=== PATIENT | male | born 1945 | race Caucasian/White ===

== ENCOUNTER 2016-11-07 05:16 | Inpatient (IN) | payer MEDICARE, BC, MEDICAID, OTHER ==
[~2016-11-07] VITALS: Ht 172.7 cm; Wt 106.4 kg
--- NOTE | ~2016-11-07 | CO ---
ADMIT: 11/07/2016 RM/LOC: 303 [facility] MR#: [id number] [address] [address] WALE NOGUERA [address] [place] [address] Consultation SEX: M AGE: 71 : 1945 DATE OF CONSULTATION: 11/07/2016 ATTENDING PHYSICIAN: Jon Piedra MD CONSULTING PHYSICIAN: Earl Mendoza MD ADDENDUM: CHIEF COMPLAINT: GI bleed and anemia. HISTORY OF PRESENT ILLNESS: This is a pleasant patient of Dr. Vasquez. He has a history of multiple myeloma. He has had some bright red blood per rectum as well as dark stools. Hemoglobin has drifted down. He is not complaining of any abdominal pain, nausea, or vomiting at this time. On exam, his abdomen is soft, it is nontender and nondistended. ASSESSMENT: Anemia, probable gastrointestinal bleed. PLAN: I recommended proceeding with both upper and lower endoscopies so we can get things done with one sedation. I have gone through risks and benefits of this procedure with the patient, he understands and agrees to proceed. Earl Mendoza MD/ sehrlyn JOB #: [id number] CC: Jon Piedra MD, Attending Physician Jon Piedra MD, Family Physician
--- NOTE | ~2016-11-07 | OR ---
ADMIT: 11/07/2016 RM/LOC: 303 [facility] MR#: [id number] [address] [address] WALE NOGUERA [address] [place] [address] Operative/Delivery Room Report SEX: M AGE: 71 : 1945 SURGERY DATE: 11/08/2016 SURGEON: Earl Mendoza MD PREOPERATIVE DIAGNOSES: Gastrointestinal bleed and anemia. POSTOPERATIVE DIAGNOSES: 1. Normal upper endoscopy. 2. Extensive sigmoid diverticula with evidence of some old blood within the descending colon. PROCEDURE PERFORMED: 1. EGD with biopsies. 2. Colonoscopy. ANESTHESIA: Sedation. ESTIMATED BLOOD LOSS: None. DESCRIPTION OF PROCEDURE: After appropriate informed consent was obtained, the patient was brought to the endoscopy suite. IV sedation was provided. A well-lubricated endoscope was introduced and passed down the esophagus. The esophageal mucosa appeared normal. Really no evidence of hiatal hernia. No evidence of esophagitis. The scope was advanced in the stomach. The gastric mucosa appeared normal throughout. No evidence of gastritis. No ulcerations. The pylorus was intubated. Duodenal bulb, second and third portion of duodenum appeared normal. The scope was then pulled back into the stomach, retroflexed revealing just a small hiatal hernia from below. No proximal gastritis or mass. Several biopsies were taken from the antrum. The stomach was then deflated and scope withdrawn. Then we proceeded with a colonoscopy. Rectal exam revealed mild hemorrhoids. No rectal masses. The scope was introduced, passed to the entire length of colon. He had a moderate prep. He did have some liquid stool and some old blood in the rectal vault and in the descending colon. This was irrigated and ADMIT: 11/07/2016 RM/LOC: 303 [facility] MR#: [id number] [address] [facility] [address] [place] [id number] WALE NOGUERA [address] [place] [address] Operative/Delivery Room Report SEX: M AGE: 71 : 1945 suctioned out. He had extensive diverticula in the sigmoid colon, some of these pretty wide mouth. I suspect that was the cause of his bleeding. The scope was easily advanced through this area all the way to the cecum. Ileocecal valve and appendiceal orifice appeared normal. I attempted to intubate the ileocecal valve but was unable to due to its position. The scope was slowly and carefully withdrawn. No polyps or masses were identified. Again, he had the diverticula in the sigmoid colon. The scope was then pulled back down to the rectum, retroflexed, revealing mild internal hemorrhoids. No rectal masses. The patient tolerated the procedure well and was taken to the recovery room in stable condition. Earl Mendoza MD/ sherlyn JOB #: [id number] CC: Jon Piedra MD, Attending Physician Jon Piedra MD, Family Physician Clayton Vasquez MD
[~2016-11-07 05:16] MED LIST: ASA CHILDREN'S81 MG PO; COREG DPS12.5 MG PO; COREG DPS6.25 MG PO; CYCLOBENZAPRINE10 MG PO; DECADRON-DPS4 MG PO; DELTASONE DPS20 MG PO; DUONEB DPS3 ML IH; DURAGESIC DPS25 MCG TD; EFFEXOR XR75 MG PO; EFFEXOR37.5 MG PO; ELAVIL-DPS25 MG PO; FEOSOL-DPS325 MG PO; FLOMAX DPS0.4 MG PO; GLUCOPHAGE XR500 MG PO; GLUCOSAMINE/CHO1 TAB PO; HYDRODIURIL-DPS25 MG PO; KLONOPIN DPS1 MG PO; LIPITOR DPS40 MG PO; MAALOX DPS30 ML PO; METFORMIN HCL500 M2 PO; MOBIC15 MG PO; NITROSTAT0.4 MG SL; NORCO 5-325 TA1 EACH PO; OYSTER SHELL C500 MG PO; PERCOCET 7.5 DP1 TAB PO; PRILOSEC DPS20 MG PO; PROVENTIL HFA6.7 GM IH; SURFAK DPS240 MG PO; TYLENOL DPS325 MG PO; VITAMIN B-12500 MCG PO; VITAMIN D-32000 UNI1 PO; XALATAN2.5 ML OU
--- NOTE | 2016-11-08 13:44 | ER ---
ADMIT: 11/07/2016 RM/LOC: 303 [facility] MR#: [id number] [address] [address] WALE NOGUERA [address] [place] [address] Emergency Room Report SEX: M AGE: 71 : 1945 DATE: 11/07/2016 HISTORY OF PRESENT ILLNESS: The patient is a 71-year-old male, who came here from home with chief complaint of bright red blood per rectum while he had bowel movement this morning, per patient the toilet bowl was filled with blood and the patient denied any lower abdominal pain and just complained of left posterior flank pain. The patient denies similar episodes in the past. The patient, at the moment, complains of dizziness and feeling fatigued too. The patient has a history of diabetes, coronary artery disease, status post stent twice, COPD. PHYSICAL EXAMINATION: GENERAL: The patient was very lethargic, eyes were open, and he was answering the question. VITAL SIGNS: Blood pressure was 152/65, pulse rate was 68, O2 saturation was 98% on 2 L nasal cannula. The patient was not tachypneic. HEENT: Conjunctiva was pale and sclera was not icteric. There were no bruits in the neck. The patient had pallor and skin too. HEART: The patient had 3/6 grade systolic murmur in the cardiac sounds. I did not hear any S3 or S4. LUNGS: Clear bilaterally. ABDOMEN: Soft, nontender, and no rebound or guarding. : External and genitalia is normal male genitalia without any abnormalities. There is dried dark red blood on bilateral lower extremities. Digital exam showed the patient had bright red blood which is fresh and actively bleeding. The patient had no pain in digital rectal exam and the patient had no external hemorrhoids. The patient was started on IV fluids for resuscitation. LABORATORY DATA: Lab work was sent. Hemoglobin level was 7 and 2 units PRBC for transfusion was requested. INR was 1.05 and PTT was 19.6. Lactic acid was 2.3. Sodium 144, potassium 3.5, carbon dioxide 25, glucose of 135 and creatinine of 1.2, BUN to creatinine was 25.8. AST of 12 and ALT of 23. Corrected calcium level was 8.6, considering the patient is going to have transfusion. Family Medicine was consulted and patient was admitted for active lower GI bleed, questionable profuse upper GI bleed. Pita Islas MD/ sherlyn JOB #: [id number] CC: Jon Piedra MD, Attending Physician Jon Piedra MD, Family Physician
--- NOTE | 2016-11-09 22:26 | HP ---
ADMIT: 11/07/2016 RM/LOC: 303 [facility] MR#: [id number] [address] [address] WALE NOGUERA [address] [place] [address] History and Physical SEX: M AGE: 71 : 1945 DATE OF SERVICE: CHIEF COMPLAINT: Sudden onset last evening of left lower quadrant pain and inability to urinate, large amount of niko rectal blood about 0330 hours with worsening anemia. HISTORY OF PRESENT ILLNESS: Mr. Garrett is a very nice 71-year-old male, who retired from [employer] work several years ago. He was hospitalized several months ago at [facility] with severe back pain and was too weak to go home. He then went to the half-way for few weeks and gone home in early October 2016. He was then admitted on 10/26/2016 with a cough and pneumonia that turned out to be RSV exacerbation of COPD. He states he is "pretty much recovered from that." Then last evening, he had the sudden onset of left lower quadrant/left flank pain that "radiated right down into my penis" and he could not urinate. He thought about coming to the ER at that point, but elected not to. Then about 3:00 or 4:00 this morning, he passed a large amount of niko blood per rectum and was brought back to the emergency room where his hemoglobin was noted to be 7 g - baseline hemoglobin is between 8.5 and 10. His vital signs were surprisingly stable and it was felt best to readmit him for further evaluation and treatment. PAST MEDICAL HISTORY: From old records reveals coronary artery disease, status post acute myocardial infarction and stenting, mild aortic valve stenosis, systemic hypertension, obstructive sleep apnea, morbid obesity, type 2 diabetes, chronic back pain, status post tonsillectomy and bilateral knee replacements, colonoscopy and right rotator cuff repair. His acute non-ST- elevation CA was in May 2014. CURRENT MEDS: From his old record indicate he is on: 1. Dexamethasone 4 mg 2.5 tablets on Tuesdays and Wednesdays. 2. Omeprazole 20 mg b.i.d. 3. Flomax 0.4 mg daily. 4. Lipitor 40 mg at bedtime. 5. Metformin ER 500 mg daily. 6. Meloxicam 15 mg daily. 7. Effexor-? Dose. 8. Coreg 12.5 mg daily. 9. Ferrous sulfate 325 mg b.i.d. 10.Aspirin 81 mg 2 daily. 11.P.r.n. Lortab. ALLERGIES: THERE ARE NO ALLERGIES REPORTED. 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 He retired several years ago after "I blew out both my knees." He and his live independently in their home. He does not use tobacco or alcohol. Their children are grown and gone. ADMIT: 11/07/2016 RM/LOC: 303 [facility] MR#: [id number] [address] [address] WALE NOGUERA [facility] [place] [address] History and Physical SEX: M AGE: 71 : 1945 FAMILY HISTORY: Positive for coronary artery disease. REVIEW OF SYSTEMS: Relatively stable compared to his most recent hospitalization. He has chronic back pain. He denies any headache or visual change. He has had no ominous chest pain or difficulty breathing. He states his bladder and bowel functions have been normal up until last night and this morning. He has chronic lower extremity swelling which he states is stable. He has a history of anxiety and depression. PHYSICAL EXAMINATION: GENERAL: He is alert, looks pale and in no acute distress. SKIN: Warm and dry. VITAL SIGNS: Have been surprisingly normal with pulses in the 70s, blood pressures in 120-140 systolic range. Pulse is regular. HEENT: He has poor dentition. NECK: Reasonably supple. I detect no bruits. LUNGS: Clear anteriorly. CARDIAC: Shows irregular rhythm with a grade 3/6 systolic murmur loudest at the right lower sternal border. ABDOMEN: Soft, obese. Bowel sounds are present. No obvious masses, tenderness, or organomegaly. RECTAL: Not repeated (in the ER he had niko blood). EXTREMITIES: Lower extremities show 1-2+ pitting edema to the mid-calf bilaterally. NEUROLOGIC: Normal within his ability to test. IMPRESSION: 1. Lower gastrointestinal bleed with worsening anemia. 2. Anemia of chronic disease. 3. Recent hospitalization with respiratory syncytial virus bronchitis and chronic obstructive pulmonary disease exacerbation. 4. History of acute myocardial infarction/coronary artery disease - status post stenting. 5. Type 2 diabetes. 6. Systemic hypertension. 7. Aortic valve stenosis. 8. Obstructive sleep apnea. ADMIT: 11/07/2016 RM/LOC: 303 [facility] MR#: [id number] [address] [place] [address] WALE NOGUERA [facility] [place] [address] History and Physical SEX: M AGE: 71 : 1945 9. Morbid obesity. 10.Chronic back pain. 11.Gastroesophageal reflux disease. 12.Chronic anxiety and depression. PLAN: He has been admitted to ICU given his low hemoglobin. We were in the process of giving him a 2 unit transfusion. We will seek a surgical consultation. We will keep him n.p.o. until after the surgeons see him. Hopefully his lower gastrointestinal bleed will stop. We will get a CT scan of his abdomen and pelvis, given his initial symptoms of left lower quadrant pain/flank pain. Further treatment will depend on his response to initial therapies. Clayton Vasquez MD/ sherlyn JOB #: [id number] CC: Jon Piedra MD, Attending Physician Jon Piedra MD, Family Physician
--- NOTE | 2016-11-15 08:52 | CO ---
ADMIT: 11/07/2016 RM/LOC: 418 [facility] MR#: [id number] [address] [address] WALE NOGUERA [address] [place] [address] Consultation SEX: M AGE: 71 : 1945 DATE OF CONSULTATION: 11/12/2016 ATTENDING PHYSICIAN: Jon Piedra MD CONSULTING PHYSICIAN: Joel Barger MD REASON FOR CONSULTATION: Acute kidney injury. HISTORY OF PRESENT ILLNESS: The patient is a 71-year-old gentleman, who has multiple myeloma for which he is on chemotherapy regimen with Velcade, Revlimid, and dexamethasone. His chemotherapy has been modified because of recent tooth infection. He has had a recent hospitalization with a pneumonia. He presented to the hospital 5 days ago with bright red blood per rectum. He is being worked up by surgery for this. He has had acute blood loss anemia that has required blood transfusions. He notes that he had a couple of bowel movements this morning, and he did not notice any niko blood in them. He did have melena, he thinks. He denies any respiratory complaints although he is on supplemental oxygen. He does have a history of COPD for which he uses oxygen at home at times. He denies any orthopnea or PND. He has lower extremity edema. His kidney function when he was admitted was normal. He had a creatinine of 2.3 today. It was 1.5 yesterday and 1.2 the day before. He had a Hernández catheter upon admission that was taken out during this hospitalization. He reports he has been having some dribbling urination. He was noted to be on Flomax as well that was stopped this morning. He otherwise denies any skin rash. REVIEW OF SYSTEMS: A complete review of systems is negative in detail except as mentioned in history of present illness above. PAST MEDICAL HISTORY: 1. Multiple myeloma. 2. COPD on home oxygen. 3. Obstructive sleep apnea. 4. Diabetes mellitus type 2. 5. Hypertension. 6. Low-back pain. 7. Depression. 8. Coronary artery disease. ALLERGIES: NO KNOWN DRUG ALLERGIES. MEDICATIONS: Reviewed in the chart. SOCIAL HISTORY: He is retired. He lives with his . Lifelong nonsmoker. No alcohol or recreational drug use. FAMILY HISTORY: Mother had kidney problems - nature is unknown. She was not on dialysis. Father of a heart attack. ADMIT: 11/07/2016 RM/LOC: 418 [facility] MR#: [id number] [address] [address] WALE NOGUERA [address] [place] [address] Consultation SEX: M AGE: 71 : 1945 PHYSICAL EXAMINATION: VITAL SIGNS: Temperature 98.6 Fahrenheit, pulse 80, and blood pressure 151/71. Ins and outs were not accurate since we were not able to collect all of his urine. GENERAL: He is comfortable in a recliner and is wearing supplemental oxygen. HEENT: Head is nontraumatic and normocephalic. Pale conjunctivae. Moist mucosa. CHEST: Clear to auscultation. CVS: Systolic murmur. S1 and S2 heard. No rubs, murmurs, or gallops. ABDOMEN: Soft, nontender. EXTREMITIES: 1+ bilateral lower extremity edema. SKIN: No rash or nodules. NEUROLOGIC: Alert, awake, and oriented x3. Moving all extremities. PSYCHIATRIC: Memory within normal limits. LABORATORY DATA: Reviewed. BMP with sodium 141, potassium 4.1, creatinine 2.3. Hemoglobin 9.7, was 5.5 yesterday. Calcium 7.6, magnesium 2.2. Urinalysis couple days ago without any proteinuria or leukocyte esterase. He did have microscopic blood in his urine. ASSESSMENT/PLAN: Acute kidney injury - differential diagnosis includes prerenal acute kidney injury/ischemic acute tubular necrosis in the setting of GI bleed and acute blood loss anemia. Obstruction/urinary retention is another possibility. I will resume his Flomax as well as check a postvoid residual. I will obtain a Hernández catheter if needed. I will also obtain a urinalysis with microscopy to evaluate the etiology of his acute kidney injury further. For the time being, I recommend supportive renal care and avoiding nephrotoxins such as NSAIDs, IV contrast, or Fleets enemas. I will monitor his kidney function with these interventions. There is no indication for renal replacement therapy at this time. Thank you this consultation and allowing me the opportunity participate this patient's care. Please do not hesitate to contact me with any questions. Joel Barger MD/ guillermol JOB #: [id number] CC: Jon Piedra MD, Attending Physician Jon Piedra MD, Family Physician
--- NOTE | 2016-11-20 09:04 | CO ---
ADMIT: 11/07/2016 RM/LOC: 303 [facility] MR#: [id number] [address] [address] HARSHA NOGUERA [address] [place] [address] Consultation SEX: M AGE: 71 : 1945 DATE OF CONSULTATION: 11/07/2016 ATTENDING PHYSICIAN: Jon Piedra MD CONSULTING PHYSICIAN: Earl Mendoza MD REASON FOR CONSULTATION: Bright red blood per rectum. HISTORY OF PRESENT ILLNESS: Harsha is a very pleasant 71-year-old male, who states that he woke up last night to void and in doing so, had a very large bowel movement. At this time, he notices the stools to be very dark and bloody with bright red blood. He also became very weak, lightheaded, and experienced some blurred vision. He did have some abdominal pain prior to this, which was more on his left side and actually radiate to his left flank but he believes his pain has resolved after having a bowel movement. He currently denies any diarrhea or constipation; however, the stools were kind of loose. He further denies any fever or chills. He does take two 81 mg aspirin daily and iron supplements. PAST MEDICAL HISTORY: COPD, hypertension, multiple myeloma, type 2 diabetes. PAST SURGICAL HISTORY: 1. Numerous prior EGDs and colonoscopies. 2. Heart stent x2. 3. Previous cystoscopies. 4. Rotator cuff repair. 5. Vertebroplasty. 6. T and A. 7. Knee scopes. ALLERGIES: NO KNOWN DRUG ALLERGIES. MEDICATIONS: Please see HPI. FAMILY HISTORY: Noncontributory. SOCIAL HISTORY: The patient denies any alcohol, tobacco, or illicit drug use. REVIEW OF SYSTEMS: CONSTITUTIONAL: The patient denies any fever, chills, or night sweats. The rest of comprehensive 10-point review of systems was performed and all other systems are negative unless stated in the HPI. PHYSICAL EXAMINATION: GENERAL: The patient is in no acute distress. He is alert oriented. HEENT: Head is normocephalic and atraumatic. EOMs are intact. Conjunctivae free of icterus, erythema, or pallor. Pinnae, free of deformities. Nose is midline. No tracheal deviation. Poor dentition noted. NECK: Supple. SKIN: Negative for jaundice, clubbing, edema, pallor, or cyanosis. ADMIT: 11/07/2016 RM/LOC: 303 [facility] MR#: [id number] [address] [address] HARSHA NOGUERA [address] [place] [address] Consultation SEX: M AGE: 71 : 1945 LUNGS: Normal respiratory effort. Clear to auscultation bilaterally. HEART: Grade 5 systolic murmur noted upon auscultation, systolic, regular rate and rhythm. Distal pulses intact. ABDOMEN: Soft, nondistended, and nontender. GENITOURINARY: Hernández in place. NEURO: Grossly intact. LABORATORY DATA: Hemoglobin is 7.0. ASSESSMENT: Upper and lower gastrointestinal bleed. PLAN: Plan is to have the patient undergo EGD and colonoscopy tomorrow performed by Dr. Mendoza. I discussed the risks, alternatives, benefits, and complications with the patient and I will be notifying the as she signs the consent. He is in agreement of this plan. I had all his questions answered and elected to proceed. I will have him on the schedule, and so I will get him prepped today and we will go from there. Thank for the consultation of this patient. TORY George / Earl Mendoza MD / modl JOB #: [id number] CC: Jon Piedra MD, Attending Physician Jon Piedra MD, Family Physician
--- NOTE | 2016-11-21 07:43 | DS ---
ADMIT: 11/07/2016 RM/LOC: 418 [facility] MR#: [id number] [address] [address] WALE NOGUERA [address] [place] [address] General Discharge Summary SEX: M AGE: 71 : 1945 ADMISSION DATE: 11/07/2016 DISCHARGE DATE: 11/14/2016 ADMITTING DIAGNOSIS: Acute lower gastrointestinal bleed. DISMISSAL DIAGNOSIS: Acute lower gastrointestinal bleed with negative upper and lower endoscopies. COMPLICATING DIAGNOSES: 1. Acute blood loss anemia. 2. Multiple myeloma. 3. Morbid obesity. 4. Obstructive sleep apnea. 5. Hypertension. 6. Coronary artery disease. 7. Depression. 8. Chronic pain. 9. Gastroesophageal reflux. CONSULTANTS: Dr. Mendoza, Dr. Otero, and Dr. Barger. CHIEF COMPLAINT AND HISTORY OF PRESENT ILLNESS: This is a 71-year-old male, retired, recently hospitalized with severe back pain, was diagnosed with multiple myeloma. Rehospitalized in October of this year with respiratory syncytial virus, exacerbation of COPD. He recovered from that and was feeling well until he developed some left flank left lower quadrant pain. Not able to urinate. He came to the emergency room past a large amount of bright red blood per rectum. Hemoglobin noted to be 7 and his baseline between 8.5 and 10. He was admitted for acute lower GI bleed. LABORATORY REPORTS: See lab summary sheets. Hemoglobin after transfusion, prior to dismissal was 10.3, white count was 10.5. Hemoglobin dropped as low as 5.5 during the hospital stay before transfusion and he was transfused on two separate occasions. INR was negative. UA was unremarkable. Electrolytes prior to dismissal; sodium 140, potassium 4.1, chloride 103, CO2 of 29, BUN 33, creatinine 1.3. Glucose 111. Liver enzymes were normal. Magnesium prior to dismissal was 2.3, during the hospital reached a low of 1.6. Blood sugars monitored serially during the hospital stay, originally 100 to 250 range. Urine culture showed no growth. RADIOLOGY REPORTS: CT scan of abdomen and pelvis showed stable diaphragmatic hernia, kidneys without obstructive changes, sigmoid diverticulosis present with mild adjacent induration of the mesenteric fat suggesting mild diverticulitis. No signs of any abscess. Bladder wall was thickened. Hernández catheter was in the bladder. Generalized bony demineralization and degenerative changes of the lumbar spine. GI bleeding study was negative. Chest x-ray showed a prominent hiatal hernia. Also, on the kidney, showed mild prominence of both renal pelvises fairly similar to the CT, multiple renal cysts, no obstruction, no stones. ADMIT: 11/07/2016 RM/LOC: 418 [facility] MR#: [id number] [address] [address] WALE NOGUERA [facility] [place] [address] General Discharge Summary SEX: M AGE: 71 : 1945 PROCEDURES: On November 08, he had upper and lower endoscopic evaluation with Dr. Mendoza. Had extensive diverticula, but no active bleeding during the scope. COURSE IN HOSPITAL: Jacobo was admitted, monitored. Hemoglobin dropped, he was transfused, appeared to be stable, then he bled again, was transfused a second time because hemoglobin dropped down to below 6. He had hypokalemia, was treated with IV potassium; hypomagnesemia, treated with IV magnesium; and had no bleeding in the last three days in the hospital, was felt to be stable. He was dismissed to [facility] for physical therapy and rehab due to weakness. His creatinine did rise as high as 3. He had acute urinary retention, catheter was placed and with decompression of the bladder, his creatinine dropped to 1.3 prior to dismissal. He is to be followed up by Urology as an outpatient for removal of the catheter and follow with Nephrology. Medications at dismissal were: 1. Coreg 6.25 mg b.i.d. 2. Decadron twice a week dosage per Oncology. 3. Effexor 75 mg daily. 4. Iron 325 mg b.i.d. 5. Flomax 0.4 mg daily. 6. Keflex 1000 mg b.i.d. for 7 days. 7. Lipitor 40 mg at bedtime. 8. Norvasc 5 mg daily. 9. Protonix 40 mg b.i.d. 10.Magnesium 128 mg b.i.d. 11.Hydrocodone p.r.n. 12.DuoNeb twin jet nebulizers. He is to have a CBC and BMP in 1 and 2 weeks. He is to be seen back in my office for followup in two weeks. He is to follow up with Oncology in addition to Nephrology and Urology. Jon Piedra MD/ sherlyn JOB #: [id number] CC: oJn Piedra MD, Attending Physician Jon Piedra MD, Family Physician
[2016-11-21] MEDS ORDERED: DECADRON-DPS4 MG PO (19:05)
[2016-11-21] MEDS ORDERED: COREG DPS6.25 MG PO (19:05)
[2016-11-21] MEDS ORDERED: NORCO 5-325 TA1 EACH PO (19:06)
[2016-11-21] MEDS ORDERED: FLOMAX DPS0.4 MG PO (19:06)
[2016-11-21] MEDS ORDERED: LIPITOR40 MG PO (19:06)
[2016-11-21] MEDS ORDERED: FEOSOL-DPS325 MG PO (19:06)
[2016-11-21] MEDS ORDERED: EFFEXOR DPS75 MG PO (19:06)
[2016-11-21] MEDS ORDERED: PRILOSEC DPS20 MG PO (19:06)
[2016-11-21] MEDS ORDERED: TYLENOL DPS325 MG PO (19:07)
[2016-11-21] MEDS ORDERED: SURFAK DPS240 MG PO (19:07)
[2016-11-21] MEDS ORDERED: DUONEB DPS3 ML IH (19:07)
[2016-11-21] MEDS ORDERED: MAALOX DPS30 ML PO (19:07)
--- NOTE | 2016-11-28 09:47 | CO ---
ADMIT: 11/07/2016 RM/LOC: 418 [facility] MR#: [id number] [address] [address] WALE LANTIGUA [address] [place] [address] Consultation SEX: M AGE: 71 : 1945 DATE OF CONSULTATION: 11/07/2016 ATTENDING PHYSICIAN: Jon Piedra MD CONSULTING PHYSICIAN: Lisa Otero MD REASON FOR HEMATOLOGY/ONCOLOGY CONSULTATION: 1. Acute GI bleed with acute drop in hemoglobin. 2. Multiple myeloma, on active chemotherapy. INTERIM HISTORY: Mr. Lantigua is a 71-year-old patient with multiple myeloma, very well known to me. He has been recently diagnosed with multiple myeloma and on the treatment with VRD regimen. He has received one cycle of the treatment but could not get his second cycle because he was admitted in the hospital in the past. He just recently started Velcade and dexamethasone, then got admitted to the hospital because of the acute GI bleed. As per the patient, last night, he had these bouts of movement with some fresh blood as well as some maroon colored blood which is melena. He fainted and he was transported to the hospital via ambulance as per his son. When he came to the hospital, he was given IV fluids. He recovered his consciousness. He was fine, but his hemoglobin was low and he received 2 units of blood in the hospital. His hemoglobin counts are stable. He has been seen by surgeon by Dr. Mendoza and the plan is to get endoscopy and colonoscopy tomorrow. The patient denies any nausea or vomiting. Denies any diarrhea. He does not recall how he bled. He was on baby aspirin for the prophylaxis to prevent blood clots from Revlimid. He is not on any blood thinners. No fever. No shortness of breath. PAST MEDICAL HISTORY: Multiple myeloma, on active treatment with Velcade, Revlimid, and dexamethasone. He does have multiple medical problems, diabetes type 2, obstructive sleep apnea, COPD, coronary artery disease, hypertension, low back pain, depression. ALLERGIES: NO KNOWN DRUG ALLERGIES. MEDICATIONS: He was on: 1. Velcade. 2. Revlimid. 3. Dexamethasone. 4. Aspirin. 5. Acyclovir. 6. Atorvastatin. SOCIAL HISTORY: He is disabled, retired at home. Currently, he does not smoke, does not drink. FAMILY HISTORY: His father of a heart attack. Mother of diabetes and kidney disease. Some heart issues and skin cancers in the family. ADMIT: 11/07/2016 RM/LOC: 418 [facility] MR#: [id number] [address] [place] [address] [facility] [place] [address] Consultation SEX: M AGE: 71 : 1945 REVIEW OF SYSTEMS: GENERAL: Not in acute distress. INFECTION: No fever. RESPIRATORY: No shortness of breath. CARDIOVASCULAR: No chest pain. GASTROINTESTINAL: No nausea. No vomiting. No diarrhea. GENITOURINARY: No urgency, no frequency. SKIN: No rashes. EXTREMITIES: No swelling. PHYSICAL EXAMINATION: VITAL SIGNS: Temperature is 97.9, pulse 70, respirations 15, blood pressure 130/58. HEENT: Normocephalic, atraumatic. LUNGS: Clear. HEART: S1, S2 heard. Regular rate and rhythm. ABDOMEN: Soft, nontender, and nondistended. Positive bowel sounds. EXTREMITIES: No edema. NEUROLOGICAL: Awake, alert, and oriented x3. LYMPHATICS: No abnormal lymph nodes palpated. SKIN: No rashes. LABORATORY DATA: Labs showed WBC was 13.2, hemoglobin 7, platelets 175, normal kidney, normal LFTs. IMPRESSION AND RECOMMENDATIONS: Mr. Lantigua is a 71-year-old pleasant gentleman with a history of multiple myeloma, on active treatment with VRD regimen, was admitted due to GI bleed. 1. GI bleed, could be upper or lower. As per the patient, he has bright red blood as well as brownish stool color. It could be both. Therefore, he needs to be on Protonix drip for the GI bleed. He could have also upper GI bleed as well as lower GI bleed. He has been seen by surgeon, Dr. Mendoza, and is planned to get an endoscopy and colonoscopy tomorrow. We will follow the results. Until then, we will monitor H and H q.8 hours and transfuse him if his hemoglobin count falls below 7 g. He has already received 2 units of blood so far. 2. Multiple myeloma, active, not in remission, on treatment VRD. Because of his hospitalization and comorbid conditions, he has not been able to get treatment on time. He did have completed one cycle of the treatment but has just started the second cycle and got admitted due to the bleed. The patient to hold on aspirin. He does have very bad dental health. Therefore, he needs to see a dentist before we can even start any treatment for his bone due to multiple myeloma. We are waiting for the dental evaluation and treatment of his tooth prior to starting any bisphosphonates. I have answered all his questions and concerns. We will continue to monitor his hemoglobin count. 3. Acute drop in hemoglobin due to GI bleed. We will transfuse if his hemoglobin falls below 7 g. 4. Leukocytosis, slightly elevated white blood cell count, could be from the steroids that he was taking for multiple myeloma, but we will continue to ADMIT: 11/07/2016 RM/LOC: 418 [facility] MR#: [id number] [facility] [address] [address] WALE LANTIGUA [address] [place] [address] Consultation SEX: M AGE: 71 : 1945 watch it. I have also discussed his case with his son and his over the telephone and I have explained them about the conditions and also took history of what happened last night. I have answered all the patient's questions and concerns. I have spent 80 minutes of my time and more than 50% of the time was [id number] in discussing about the conditions. He is taking the history, reviewing the chart, and reviewing the medical records, discussing with him about the treatment plan, the blood test that needs to be done and the necessity of colonoscopy and upper endoscopy. Thank you for your consultation and the opportunity in taking care of your patient. Lisa Otero MD/ sherlyn JOB #: [id number] CC: Jon Piedra MD, Attending Physician Jon Piedra MD, Family Physician
[2017-02-11] MEDS ORDERED: ZOVIRAX400 MG PO (14:47)
[2017-02-11] MEDS ORDERED: MELOXICAM15 MG PO (14:47)
[2017-02-11] MEDS ORDERED: ASA CHILDREN'S81 MG PO (14:47)
[2017-02-11] MEDS ORDERED: CALCIUM500 MG PO (14:47)
[2017-02-11] MEDS ORDERED: REVLIMID25 MG PO (14:48)
[2017-02-11] MEDS ORDERED: GLUCOPHAGE-DPS500 MG PO (14:48)
[2017-02-11] MEDS ORDERED: VITAMIN D32000 UNI1 PO (14:49)
[2017-02-11] MEDS ORDERED: VITAMIN B-12500 MCG PO (14:49)
[2017-02-11] MEDS ORDERED: BACTRIM DS DPS1 TAB PO (14:49)
[2017-02-11] MEDS ORDERED: KLOR-CON M2020 ME1 PO (14:50)
== END 2016-11-14 14:54 | DRG 378 ==
LOC: ER 05:16 → 4PCU 06:09 → 3ICU 06:09 → 4PCU 11-08 12:25
PROVIDERS: ADMIT Family Medicine
PROC: 30233N1 Transfusion of Nonautologous Red Blood Cells into Peripheral Vein, Percutaneous Approach (ICD-10-PCS; 2016-11-07)
PROC: 0DB68ZX Excision of Stomach, Via Natural or Artificial Opening Endoscopic, Diagnostic (ICD-10-PCS; principal; 2016-11-08)
PROC: 0DJD8ZZ Inspection of Lower Intestinal Tract, Via Natural or Artificial Opening Endoscopic (ICD-10-PCS; principal; 2016-11-08)
DX: K92.1 Melena (principal); D62 Acute posthemorrhagic anemia; N17.9 Acute kidney failure, unspecified; L89.310 Pressure ulcer of right buttock, unstageable; C90.00 Multiple myeloma not having achieved remission; Z99.81 Dependence on supplemental oxygen; J44.9 Chronic obstructive pulmonary disease, unspecified; E83.42 Hypomagnesemia; E11.9 Type 2 diabetes mellitus without complications; I10 Essential (primary) hypertension; E87.6 Hypokalemia; N40.1 Benign prostatic hyperplasia with lower urinary tract symptoms; R33.9 Retention of urine, unspecified; E66.9 Obesity, unspecified; Z68.35 Body mass index [BMI] 35.0-35.9, adult; F32.9 Major depressive disorder, single episode, unspecified; I25.10 Atherosclerotic heart disease of native coronary artery without angina pectoris; K57.30 Diverticulosis of large intestine without perforation or abscess without bleeding; I25.2 Old myocardial infarction; G47.33 Obstructive sleep apnea (adult) (pediatric); K21.9 Gastro-esophageal reflux disease without esophagitis; F41.9 Anxiety disorder, unspecified; M54.9 Dorsalgia, unspecified; Z96.653 Presence of artificial knee joint, bilateral; Z79.84 Long term (current) use of oral hypoglycemic drugs; Z82.49 Family history of ischemic heart disease and other diseases of the circulatory system; Z95.5 Presence of coronary angioplasty implant and graft; Z79.82 Long term (current) use of aspirin

== ENCOUNTER 2016-11-16 00:53 | Inpatient (IN) | payer MEDICARE, BC, OTHER ==
[~2016-11-16] VITALS: Ht 172.7 cm; Wt 106.3 kg
--- NOTE | 2016-11-16 19:08 | ER ---
ADMIT: 11/16/2016 RM/LOC: 411 [facility] MR#: [id number] [address] [address] MIKE NOGUERADRGILDA Clemons [address] [place] [address] Emergency Room Report SEX: M AGE: 71 : 1945 DATE: 11/16/2016 CHIEF COMPLAINT: Rectal bleeding. HISTORY OF PRESENT ILLNESS: The patient is a 71-year-old male with recent history of lower GI bleed, confirmed on colonoscopy, presents with acute onset bright red blood per rectum, followed by clots and maroon stool. Does admit to lower abdominal discomfort. Denies any nausea, vomiting, fevers, chills, or cough. Does admit to increasing bloody urine per Hernández catheter for the past 24 hours. This is his 4th hospitalization since August. Did receive transfusion the admission before last. ALLERGIES: NONE. MEDICATIONS: None. ILLNESSES: 1. Coronary artery disease, status post OK. 2. Mild aortic stenosis. 3. Type 2 diabetes. 4. Hypertension. 5. GI bleed, 11/07/2015, confirmed on colonoscopy. 6. Obstructive sleep apnea. 7. Obesity. 8. Chronic low back pain, status post recent vertebroplasty. 9. Newly diagnosed multiple myeloma, on Velcade, Revlimid, and dexamethasone. 10.Degenerative disk disease and degenerative joint disease, lower back. 11.Depression. 12.Hyperlipidemia. 13.Chronic kidney disease. 14.O2-dependent COPD. 15.Iron deficiency anemia. 16.Hypothyroidism. OPERATIONS: 1. Bilateral total knee arthroplasties. 2. Tonsillectomy and adenoidectomy. 3. Right rotator cuff repair. 4. PCI stent, right coronary artery and circumflex, 2013. 5. Vertebroplasty recently. 6. Bilateral knee scopes. SOCIAL HISTORY: . Retired. Nonsmoker. Nondrinker. FAMILY HISTORY: Positive for coronary artery disease. REVIEW OF SYSTEMS: A 12-point review of systems negative for all other systems, illnesses, or operations except as outlined above. ADMIT: 11/16/2016 RM/LOC: 411 [facility] MR#: [id number] [address] [address] MIKE NOGUERADRGILDA Clemons [address] [place] [address] Emergency Room Report SEX: M AGE: 71 : 1945 PHYSICAL EXAMINATION: VITAL SIGNS: Temp 97.9, pulse 90, respirations 20, BP 110/64, SaO2 of 95% on room air. GENERAL: Anxious, nontoxic, non-diaphoretic without jaundice or icterus. HEENT: Normocephalic. No evidence of epistaxis, rhinorrhea, or otorrhea. NECK: Supple without lymphadenopathy or thyromegaly. CHEST: Clear. Breath sounds equal though diminished without rales, rhonchi, or wheeze. HEART: Regular rate and rhythm without murmur, gallop, or edema. ABDOMEN: Obese, slightly tender suprapubically without mass or megaly. Bowel sounds hypoactive. : Hernández catheter in place. Normal scrotal contents. RECTAL: Hematest positive gross bloody stool. EXTREMITIES: No evidence of Homans sign, synovitis, or dermatitis. NEURO: EOMI. PERRLA. No evidence of drift, dysarthria, or ataxia. Gait not assessed. MENTAL STATUS: Alert, oriented, and cooperative without delusions, hallucinations, or abnormal thought content. MEDICAL DECISION MAKING: EKG shows sinus tach, rate of [address]-T or Q- wave change. Chest x-ray shows large hiatal hernia; otherwise, negative. Hemoglobin 9.7, down slightly from 10.3 on November 14; WBC 15.3. CRP 1.49. BNP 401. Troponin 0.021. Procalcitonin 0.058, positive. Glucose 173. Lactic 2.2. INR 1.01. Hernández catheter 3097 rbc's, 3+ blood, 2+ leukocyte esterase. The patient was given fluid bolus 30 mL/kg after orthostatic blood pressures confirmed. Hypovolemia. Discussed findings and disposition with Dr. Godoy and Dr. Jimenez. Dr. Jimenez gave orders to nursing staff. DIAGNOSES: 1. Hypovolemic shock secondary to lower gastrointestinal bleed. 2. Diverticular bleed. 3. Multiple myeloma, currently under chemotherapy. RECOMMENDATION: Admit inpatient telemetry for Dr. Godoy. ADMISSION/DISCHARGE CONDITION: Stable. CODE STATUS: The patient is a full code. Nicola Palma MD/ guillermol JOB #: [id number] CC: Jon Piedra MD, Attending Physician Jon Piedra MD, Family Physician ADMIT: 11/16/2016 RM/LOC: 411 [facility] MR#: [id number] [address] [address] WALE NOGUERA [facility] [place] [address] Emergency Room Report SEX: M AGE: 71 : 1945 Jon Piedra MD
--- NOTE | 2016-11-19 08:29 | CO ---
ADMIT: 11/16/2016 RM/LOC: 411 [facility] MR#: [id number] [address] [address] HARSHA NOGUERA [address] [place] [address] Consultation SEX: M AGE: 71 : 1945 DATE OF CONSULTATION: 11/16/2016 ATTENDING PHYSICIAN: Jon Piedra MD CONSULTING PHYSICIAN: Milan Byrne MD HISTORY OF PRESENT ILLNESS: This is a 71-year-old male seen in surgical consultation for Dr. Godoy and Dr. Piedra, with complaints of rectal bleeding. Harsha had a recent admission just about 10 days ago for similar episode, that resolved spontaneously. He underwent upper and lower endoscopy at that time and was found to have severe sigmoid diverticulosis and that was the source of the bleeding, it was felt. He describes the symptoms yesterday as returning with some dark-formed black stool and then last night, transitioning to red bloodier stool. That prompted the return to the ER. He has multiple myeloma and is currently undergoing chemotherapy. He also has coronary artery disease and has had prior stents. He had been on aspirin therapy also leading up to that last hospitalization. Today, he has had no bloody bowel movements overnight. He denies any abdominal pain currently. His hemoglobin has drifted down to 7.9 from 9.7 last night. He, again, has had no bloody bowel movements overnight. He does remain orthostatic with some lightheadedness symptomatology when he stands up. PAST MEDICAL HISTORY: 1. Prior diverticular bleed. 2. Multiple myeloma, on chemotherapy. 3. Coronary artery disease with prior coronary artery stents. 4. Aortic valve stenosis. 5. Hypertension. 6. Obstructive sleep apnea. 7. Type 2 diabetes. 8. Morbid obesity. 9. Chronic back pain. PAST SURGICAL HISTORY: 1. Recent upper and lower endoscopy. 2. Bilateral total knee arthroplasty. 3. Tonsillectomy. 4. Right rotator cuff repair. 5. Vertebroplasty. 6. Coronary artery stent insertion. MEDICATIONS: At home: 1. Dexamethasone. 2. Omeprazole. 3. Tamsulosin. 4. Atorvastatin. 5. Metformin. 6. Meloxicam. 7. Venlafaxine. ADMIT: 11/16/2016 RM/LOC: 411 [facility] MR#: [id number] [address] [address] HARSHA NOGUERA [address] [place] [address] Consultation SEX: M AGE: 71 : 1945 8. Carvedilol. 9. [place]. 10.Ferrous sulfate. 11.Aspirin. 12.DuoNeb. 13.Prednisone. ALLERGIES: NO KNOWN MEDICAL ALLERGIES. SOCIAL HISTORY: Currently lives at [facility]. Denies tobacco, alcohol, or illegal drug use. FAMILY HISTORY: Significant for coronary artery disease and diabetes. REVIEW OF SYSTEMS: A 10-point review of systems was performed and negative for other recent change with the exception of the symptoms mentioned in the history of present illness. PHYSICAL EXAMINATION: GENERAL: Harsha is alert, oriented, and in no acute distress. VITAL SIGNS: Currently stable, and he is afebrile. HEENT: Sclerae appear pale, but anicteric. Pupils are equal and reactive. NECK: Supple. Trachea is midline with no lymphadenopathy. LUNGS: Clear bilaterally. HEART: Regular rate and rhythm with a systolic ejection murmur. ABDOMEN: Soft, nontender with no palpable masses. EXTREMITIES: Calves are soft bilaterally with foot edema 2+ out of 4+. IMPRESSION: 1. Gastrointestinal bleed. 2. Multiple myeloma, on current chemotherapy. 3. Coronary artery disease. 4. Sleep apnea. 5. Type 2 diabetes. 6. Aortic stenosis. ADMIT: 11/16/2016 RM/LOC: 411 [facility] MR#: [id number] [address] [address] HARSHA NOGUERA [address] [place] [address] Consultation SEX: M AGE: 71 : 1945 7. Morbid obesity. PLAN: I have ordered a tagged red blood cell scan to see if there is any sign of ongoing bleeding. Pending that test, we will have additional discussion of our plan. I discussed with Harsha the potential need for repeat endoscopy; however, given that it may be colonic bleeding, the likelihood of providing therapy via endoscopy may be relatively low. If there are signs of ongoing bleeding, we would ask if Interventional Radiology is available for consideration of embolization of the area. I discussed this with Harsha as our plan and he agrees. In the meantime, he will continue with resuscitation with transfusions as needed. We will have serial hemoglobin analysis and clinical monitoring for any ongoing signs of bleeding. Milan Byrne MD/ guillermol JOB #: [id number] CC: Jon Piedra MD, Attending Physician Jon Piedra MD, Family Physician
--- NOTE | 2016-11-20 08:13 | HP ---
ADMIT: 11/16/2016 RM/LOC: 411 [facility] MR#: [id number] [address] [address] WALE NOGUERA [address] [place] [address] History and Physical SEX: M AGE: 71 : 1945 DATE OF SERVICE: CHIEF COMPLAINT: Rectal bleeding. HISTORY OF PRESENT ILLNESS: This is a 71-year-old male with a past medical history significant for multiple myeloma currently on chemotherapy, coronary artery disease status post stents in 2013, hypertension and diabetes, who is admitted for rectal bleeding. He was recently hospitalized November 07 through November 14 for scope-confirmed diverticular bleed. His hemoglobin on discharge was 10.3. The patient reports that yesterday morning, he had a formed dark black stool. Later in the day, the stools transitioned to loose bright red bloody stools. He denies any abdominal pain, nausea, vomiting, or fever. He does admit to feeling lightheaded and dizzy when he stands. He also noticed that his urine yesterday was bloody, but this is now cleared. In the Emergency Department, he was given sepsis protocol fluids and found to have orthostatic hypotension. His hemoglobin was noted to be 9.7. He was also, as stated above, hypotensive and tachycardic. After given IV fluids, his vitals stabilized and he was transferred to the floor. PAST MEDICAL HISTORY: 1. Again, he was last admitted November 07 through November 14 for a sigmoid diverticular bleed. His upper EGD was normal. 2. Coronary artery disease, status post stenting in 2013. 3. Aortic valve stenosis. 4. Hypertension. 5. Chronic back pain. 6. Multiple myeloma, currently on chemotherapy. 7. Obstructive sleep apnea. 8. Type 2 diabetes mellitus. 9. Morbid obesity. PAST SURGICAL HISTORY: 1. Bilateral total knee arthroplasty. 2. Tonsillectomy. 3. Right rotator cuff repair. 4. Vertebroplasty. 5. Coronary artery stenting. MEDICATIONS: 1. Dexamethasone 4 mg 2.5 tabs Thursday and Thursday. 2. Omeprazole 20 mg twice daily. 3. Tamsulosin 0.4 mg daily. 4. Atorvastatin 40 mg daily. 5. Metformin 500 mg daily. 6. Meloxicam 15 mg daily. 7. Venlafaxine 75 mg daily. 8. Carvedilol 12.5 mg daily. 9. [place] 5/325 every 6 hours as needed. 10.Ferrous sulfate 325 mg b.i.d. ADMIT: 11/16/2016 RM/LOC: 411 [facility] MR#: [id number] [address] [address] CHUCKIE WALE A [address] [place] [address] History and Physical SEX: M AGE: 71 : 1945 11.Aspirin 81 mg two tabs daily. 12.DuoNeb 3 mL q.i.d. p.r.n. 13.Prednisone 20 mg daily x4 days. ALLERGIES: NONE. SOCIAL HISTORY: He denies tobacco, alcohol, or illegal drug use. He is currently living at [facility]. FAMILY HISTORY: Significant for coronary artery disease and diabetes mellitus. REVIEW OF SYSTEMS: A 10-point review of systems was reviewed and negative other than that stated above in the HPI. PHYSICAL EXAMINATION: VITAL SIGNS: Blood pressure 105/55, pulse 90, respirations 20, temp 97.9, saturating 95% on room air. GENERAL: He is alert and oriented x3. No acute distress. HEART: Regular rate and rhythm. He does have a systolic ejection murmur. LUNGS: Clear. ABDOMEN: Soft, nontender, nondistended. He does have some hypoactive bowel sounds. EXTREMITIES: Bilateral foot edema with 2+ pitting. LABORATORY AND X-RAY DATA: Sodium 145, potassium 3.5, creatinine 1.0. White count 14.1, hemoglobin this morning was down to 7.9, platelets 187. Lactic acid 2.2. Procalcitonin negative. He was Hemoccult positive x1. Phosphorus 2.2. Magnesium 1.5. CRP 1.49. Cardiac enzymes were negative. His blood and urine cultures are pending. His UA showed 3+ blood, 2+ leuk esterase, and 179 white cells, this was collected from his Hernández catheter that had been placed back in his recent hospitalization in October. Chest x-ray was reviewed that showed some left lower lobe consolidation versus atelectasis. ASSESSMENT AND PLAN: ADMIT: 11/16/2016 RM/LOC: 411 [facility] MR#: [id number] [address] [address] WALE NOGUERA [address] [place] [address] History and Physical SEX: M AGE: 71 : 1945 1. Lower gastrointestinal bleed. We went ahead and consulted Surgery as he will likely need a repeat colonoscopy. We will go ahead and continue to give him fluids. 2. Anemia. We will plan to monitor this. He has a repeat hemoglobin at noon. We will plan to transfuse him if his hemoglobin drops below 7. 3. Multiple myeloma, currently undergoing chemotherapy. I did consult Oncology to follow him while here. 4. Diabetes mellitus. We will go ahead and hold his metformin and start him on low-dose sliding scale insulin. 5. Hypomagnesemia. We will replace this and recheck it this afternoon. 6. Bacteriuria. We will plan to replace his Hernández and get a new urine culture as needed. We will treat if he has a urinary tract infection. Marisa Jimenez DO Resident / Jon Piedra MD / modl JOB #: [id number] CC: Jon Piedra MD, Attending Physician Jon Piedra MD, Family Physician
[2016-11-21] MEDS ORDERED: COREG DPS6.25 MG PO (19:05)
[2016-11-21] MEDS ORDERED: DECADRON-DPS4 MG PO (19:05)
[2016-11-21] MEDS ORDERED: FLOMAX DPS0.4 MG PO (19:06)
[2016-11-21] MEDS ORDERED: LIPITOR40 MG PO (19:06)
[2016-11-21] MEDS ORDERED: FEOSOL-DPS325 MG PO (19:06)
[2016-11-21] MEDS ORDERED: EFFEXOR DPS75 MG PO (19:06)
[2016-11-21] MEDS ORDERED: NORCO 5-325 TA1 EACH PO (19:06)
[2016-11-21] MEDS ORDERED: PRILOSEC DPS20 MG PO (19:06)
[2016-11-21] MEDS ORDERED: MAALOX DPS30 ML PO (19:07)
[2016-11-21] MEDS ORDERED: DUONEB DPS3 ML IH (19:07)
[2016-11-21] MEDS ORDERED: SURFAK DPS240 MG PO (19:07)
[2016-11-21] MEDS ORDERED: TYLENOL DPS325 MG PO (19:07)
--- NOTE | 2016-12-05 09:17 | DS ---
ADMIT: 11/16/2016 RM/LOC: 411 [facility] MR#: [id number] [address] [address] [place] [address] Discharge Summary SEX: M AGE: 71 : 1945 ADMISSION DATE: 11/16/2016 DISCHARGE DATE: 11/20/2016 DISCHARGE DIAGNOSES: 1. Diverticular bleed. 2. Acute blood loss anemia. 3. Urinary tract infection with culture positive Pseudomonas. 4. Coronary artery disease, status post stents in 2013. 5. Aortic valve stenosis. 6. Hypertension. 7. Chronic back pain. 8. Multiple myeloma, currently on chemotherapy. 9. Type 2 diabetes mellitus. 10.Obstructive sleep apnea. 11.Morbid obesity. CONSULTS: 1. General surgery. 2. Oncology. PROCEDURES: Tagged blood red cell scan. HISTORY OF PRESENT ILLNESS: This is a 71-year-old male, who was admitted for rectal bleeding. He was recently hospitalized November 07 through November 14 for scope confirmed diverticular bleeding. His hemoglobin on discharge was 10.3. The patient reported that the previous morning he had a formed dark black stool. Later in the day, the stools transition to loose bright red bloody stools. He denied any abdominal pain, nausea, vomiting, or fever. He was feeling lightheaded and dizzy upon standing. He also noticed that his urine was bloody yesterday morning, but today that has cleared. In the ER, he was given sepsis protocol fluids and found to have orthostatic hypertension. His hemoglobin was down to 9.7, he was also hypotensive and tachycardic. After IV fluids, his vitals stabilized and he was transferred to the floor. Upon arriving to the floor, he was started on sliding scale insulin and both oncology and surgery were consulted. Because of the bacteriuria noted in the ER, his Hernández was replaced and a new urine specimen was collected for culture. Surgery decided instead of starting with a colonoscopy they would go ahead and do a tagged red blood cell scan to see if they could find the bleeding which ended up being negative. Later that night, he had a large dark bloody stool. He was given 2 units of packed red blood cells and his hemoglobin went from 7.4 to 8.3. On hospital day two, his urine culture had grew out Pseudomonas so he was started on ciprofloxacin. On hospital day three, he was running a fever up to 100.1, thought to be due to a transfusion reaction. He had two loose stools that day but no blood. His hemoglobin remained stable at 9.1. By hospital day four, he was eating and feeling well. No bloody stools or abdominal pain were noted. His hemoglobin remained stable at 9.3. He was then discharged to [facility] on oral ciprofloxacin for the next 10 days. Discharge labs, white count 12.1, hemoglobin 9.5, platelets 273. INR was 1.02. Sodium 141, potassium 3.9, creatinine 0.7. ADMIT: 11/16/2016 RM/LOC: 411 [facility] MR#: [id number] [facility] [address] [address] [place] [address] Discharge Summary SEX: M AGE: 71 : 1945 DISCHARGE MEDICATIONS: 1. Coreg 6.25 mg p.o. b.i.d. 2. Decadron 10 mg p.o. Thursday and Thursday at 9 o'clock. 3. Effexor 75 mg p.o. daily. 4. Feosol 325 mg p.o. b.i.d. 5. Flomax 0.4 mg p.o. daily. 6. Lipitor 40 mg p.o. at night. 7. Omeprazole 20 mg p.o. daily. 8. Hydrocodone acetaminophen 5/325 p.o. q.6h p.r.n. 9. Maalox 30 mL p.o. q.6h p.r.n. 10.Surfak 240 mg p.o. b.i.d. p.r.n. 11.Tylenol 650 mg p.o. q.4 p.r.n. 12.DuoNeb 3 mL inhaled q.i.d. p.r.n. 13.Ciprofloxacin 500 mg p.o. b.i.d. x10 days. DISCHARGE INSTRUCTIONS: He was discharged to [facility]. He is to have PT and OT evaluation while there. He has a follow-up appointment with Dr. Piedra on , November 27 at 11. He is to have a diabetic diet. He is at [facility] for rehab. Marisa Jimenez DO Resident / Jon Piedra MD / vdg JOB #: [id number] CC: Jon Piedra MD, Attending Physician Jon Piedra MD, Family Physician
[2017-02-11] MEDS ORDERED: MELOXICAM15 MG PO (14:47)
[2017-02-11] MEDS ORDERED: CALCIUM500 MG PO (14:47)
[2017-02-11] MEDS ORDERED: ZOVIRAX400 MG PO (14:47)
[2017-02-11] MEDS ORDERED: ASA CHILDREN'S81 MG PO (14:47)
[2017-02-11] MEDS ORDERED: GLUCOPHAGE-DPS500 MG PO (14:48)
[2017-02-11] MEDS ORDERED: REVLIMID25 MG PO (14:48)
[2017-02-11] MEDS ORDERED: BACTRIM DS DPS1 TAB PO (14:49)
[2017-02-11] MEDS ORDERED: VITAMIN D32000 UNI1 PO (14:49)
[2017-02-11] MEDS ORDERED: VITAMIN B-12500 MCG PO (14:49)
[2017-02-11] MEDS ORDERED: KLOR-CON M2020 ME1 PO (14:50)
== END 2016-11-20 11:10 | DRG 377 ==
LOC: ER 00:53 → 4PCU 02:45
PROVIDERS: ADMIT Family Medicine
PROC: 30233N1 Transfusion of Nonautologous Red Blood Cells into Peripheral Vein, Percutaneous Approach (ICD-10-PCS; principal; 2016-11-16)
DX: K57.31 Diverticulosis of large intestine without perforation or abscess with bleeding (principal); L89.313 Pressure ulcer of right buttock, stage 3; C90.00 Multiple myeloma not having achieved remission; E11.22 Type 2 diabetes mellitus with diabetic chronic kidney disease; D62 Acute posthemorrhagic anemia; B96.5 Pseudomonas (aeruginosa) (mallei) (pseudomallei) as the cause of diseases classified elsewhere; N39.0 Urinary tract infection, site not specified; E83.42 Hypomagnesemia; I25.10 Atherosclerotic heart disease of native coronary artery without angina pectoris; I25.2 Old myocardial infarction; G47.33 Obstructive sleep apnea (adult) (pediatric); M51.36 Other intervertebral disc degeneration, lumbar region; F32.9 Major depressive disorder, single episode, unspecified; I35.0 Nonrheumatic aortic (valve) stenosis; E78.5 Hyperlipidemia, unspecified; K44.9 Diaphragmatic hernia without obstruction or gangrene; E66.9 Obesity, unspecified; Z68.35 Body mass index [BMI] 35.0-35.9, adult; I12.9 Hypertensive chronic kidney disease with stage 1 through stage 4 chronic kidney disease, or unspecified chronic kidney disease; N18.9 Chronic kidney disease, unspecified; J44.9 Chronic obstructive pulmonary disease, unspecified; E03.9 Hypothyroidism, unspecified; Z96.653 Presence of artificial knee joint, bilateral; Z95.5 Presence of coronary angioplasty implant and graft; Z82.49 Family history of ischemic heart disease and other diseases of the circulatory system; Z79.82 Long term (current) use of aspirin; Z79.84 Long term (current) use of oral hypoglycemic drugs

== ENCOUNTER → 2017-01-20 | Outpatient (CLI) | payer MEDICARE, BC, MEDICAID ==
[~2017-01-20] MED LIST changes: +BACTRIM DS DPS1 TAB PO; +CALCIUM500 MG PO; +EFFEXOR DPS75 MG PO; +GLUCOPHAGE-DPS500 MG PO; +KLOR-CON M2020 ME1 PO; +LIPITOR40 MG PO; +MELOXICAM15 MG PO; +REVLIMID25 MG PO; +VITAMIN D32000 UNI1 PO; +ZOVIRAX400 MG PO
== END | disposition home or self-care (01) ==
LOC: RAD.S 12:00
DX: S09.90XA Unspecified injury of head, initial encounter (principal); R51 Headache; R42 Dizziness and giddiness; I10 Essential (primary) hypertension; C90.00 Multiple myeloma not having achieved remission; D63.0 Anemia in neoplastic disease; E66.9 Obesity, unspecified; W19.XXXA Unspecified fall, initial encounter

== ENCOUNTER 2017-02-04 14:03 | Inpatient (IN) | payer MEDICARE, BC, MEDICAID ==
[~2017-02-04] VITALS: Ht 172.7 cm; Wt 102.8 kg
[~2017-02-04 14:03] MED LIST changes: -BACTRIM DS DPS1 TAB PO; -CALCIUM500 MG PO; -GLUCOPHAGE-DPS500 MG PO; -KLOR-CON M2020 ME1 PO; -MELOXICAM15 MG PO; -REVLIMID25 MG PO; -VITAMIN D32000 UNI1 PO; -ZOVIRAX400 MG PO
--- NOTE | 2017-02-06 07:43 | HP ---
ADMIT: 02/04/2017 RM/LOC: 311 [facility] MR#: [id number] [address] [address] WALE [place]ERA [address] [place] [address] History and Physical SEX: M AGE: 71 : 1945 DATE OF SERVICE: CHIEF COMPLAINT: Syncopal episode, fractured ribs, and possible pneumonia. HISTORY OF PRESENT ILLNESS: Jacobo is a 71-year-old male, who was recently diagnosed with multiple myeloma, currently on chemotherapy. He follows, has a history of diabetes, hypertension, coronary artery disease with previous stents placed 2013. He was recently hospitalized here in November 2016 with rectal bleeding of unknown cause and presumed diverticular bleed. Jacobo was too weak when he left the hospital in November and was placed in a penitentiary for PT. He eventually was strong enough, he went back home. He has had urinary retention due to BPH, has a chronic indwelling Hernández catheter, is being followed by Urology. Jacobo got up to go to the bathroom, had been having some problems with diarrhea. He had to go urgently. He got up quickly from his chair, was on his way to the bathroom. When he yelled out to his that he was going to go down, got to him, but she is fairly immobile and it took her a little bit to get to Jacobo. By time she got there, she said he was on the floor. She thinks he hit his head. He was mumbling, did not completely lose consciousness, but was mumbling, did not make any sense. She immediately called 911. Jacobo currently has no recollection of falling, does not remember falling. He was evaluated by Dr. Mulligan in the emergency room, found to have some fractured ribs on the left side and possible fractured sternum. Also, noted incidentally on CT scan was a left lower lobe infiltrate consistent with pneumonia. Head CT was negative for any intracranial bleed. At this time, Jacobo denies any cough or recent fever. He does have indwelling catheter. His UA in the emergency room showed marked pyuria that coupled with the pneumonia. There were concerns for infection and possible sepsis. His initial septic markers, procalcitonin, and lactic acid were negative. Due to the rib fracture, the head injury with amnesia for the event and now pneumonia and possible sepsis, he will be admitted to ICU. We will obtain a surgical consult due to fractured ribs and fractured sternum. He is not tender over the sternum, but only over the ribs. PAST MEDICAL HISTORY: Well-outlined in recent history and physicals. Briefly to summarize. ALLERGIES: NONE. CURRENT MEDICATIONS: 1. Acyclovir. 2. Aspirin. 3. Lipitor 40 mg at bedtime. 4. Calcium 500 mg daily. 5. Coreg 12.5 mg 1/2 tablet b.i.d. 6. Dexamethasone 4 mg on Tuesdays and Fridays. 7. Effexor XR 75 mg daily. 8. Iron 325 mg b.i.d. 9. Flomax 0.4 mg daily. ADMIT: 02/04/2017 RM/LOC: 311 [facility] MR#: [id number] [address] [place] [address] [place] [address] History and Physical SEX: M AGE: 71 : 1945 10.Lortab 1 p.o. every 8 hours p.r.n. for pain. 11.DuoNeb twin jet nebulizers p.r.n. 12.Maalox p.r.n. 13.Mobic 15 mg daily. 14.Metformin 500 mg b.i.d. 15.Omeprazole 40 mg b.i.d. 16.Revlimid 25 mg daily on 14 days and off 7 days. 17.Surfak 240 mg b.i.d. 18.Vitamin B12. 19.Folic acid daily. 20.Vitamin D supplements daily. PAST MEDICAL HISTORY: Hospitalized here November 07 through November 14 for sigmoid diverticular bleed and rehospitalized on November 16 with diverticular bleed. History of coronary artery disease with stenting in 2003, aortic valve stenosis, hypertension, chronic back pain, multiple myeloma, obstructive sleep apnea, morbid obesity, and type 2 diabetes mellitus. PAST SURGICAL HISTORY: Previous surgeries include bilateral total knees, tonsillectomy, right rotator cuff repair, previous vertebroplasty, and coronary artery stents. SOCIAL HISTORY: He is , lives with his . Had been in [facility]. He is back at home at this time. Does not use tobacco or alcohol. FAMILY HISTORY: Positive coronary artery disease and diabetes. REVIEW OF SYSTEMS: Again, he has not had any systemic symptoms as far as cough or fever; however, CT scan in the emergency room did show left lower lobe infiltrate. He has had the BPH with urinary retention and incomplete emptying, so he has indwelling catheter. Has multiple myeloma for which he is undergoing chemotherapy. He has had the recent GI bleed, although he is having loose stools now. He has not noticed any blood in the stools. He has chronic anemia or anemia of chronic disease and coronary artery disease. Denies any chest pain other than the pain on the ribs on the left side. Otherwise, the rest of the review of systems negative. PHYSICAL EXAMINATION: GENERAL: A 71-year-old male alert, cooperative, and oriented x3. VITAL SIGNS: Stable. BP is 138/88, respiratory rate 22, temp 98.4, and O2 saturation 95% on room air. HEENT: Eyes; PERRLA. EOMs are intact. TMs not seen. Throat is moist, not inflamed. He has several teeth missing. He has them recently pulled related to his multiple myeloma. NECK: Supple. No meningeal signs. There is a slight bruising on the left supraorbital lateral area, but no swelling and no laceration. LUNGS: Clear to auscultation, although he is not able to take a deep breath ADMIT: 02/04/2017 RM/LOC: 311 [facility] MR#: [id number] [address] [facility] [address] [place], [place] [address] WALE NOGUERA [address] [place] [address] History and Physical SEX: M AGE: 71 : 1945 due to splinting. HEART: Regular rate. No murmur heard. Left chest wall is tender in the left midclavicular line at the 4th and 5th rib level. The sternal area is not tender. ABDOMEN: Obese. No organomegaly or tenderness. GENITOURINARY/RECTAL: Deferred at this time. EXTREMITIES: Chronic venous insufficiency edema of the lower extremities. DIAGNOSTIC IMPRESSION: 1. Probable vasovagal episode with secondary concussion and amnesia for the event and head injury. 2. Fractured ribs. 3. Possible fractured sternum on CT, although he is not tender. 4. Multiple myeloma, on chemotherapy. 5. Left lower lobe infiltrate. Possible pneumonia. 6. Marked pyuria and possible urinary tract infection. 7. Hypertension. 8. Hyperlipidemia. 9. Diabetes mellitus type 2. 10.Obstructive sleep apnea. 11.Morbid obesity. 12.Coronary artery disease. 13.Aortic valve stenosis. 14.Anemia of chronic disease. PLAN: Cultures have been obtained in the emergency room. We started him on IV Zosyn and IV vancomycin. Admit to ICU. Surgery consult for trauma. Lab was reviewed. His creatinine is 0.9. Potassium 3.4. Troponin I is normal. Procalcitonin is negative less than 0.05. White count 7.1, hemoglobin 8.8. Lactic acid is 1.7. UA shows many wbc clumps, 2560 wbc's per high-power field, 3+ leukocytes. Jon Piedra MD/ sherlyn JOB #: [id number] CC: Jon Piedra MD, Attending Physician Jon Piedra MD, Family Physician
--- NOTE | 2017-02-10 23:34 | ER ---
ADMIT: 02/04/2017 RM/LOC: 311 [facility] MR#: [id number] [address] [address] MIKE NOGUERADRICK Deonte [address] [place] [address] Emergency Room Report SEX: M AGE: 71 : 1945 DATE: 02/04/2017 TIME: 1403 hours. Please refer to my T-sheet for complete H and P. HISTORY OF PRESENT ILLNESS: Briefly, the patient is a 71-year-old who has multiple comorbidities, multiple myeloma, anemia, hypertension, diabetes. He has an indwelling Hernández. He was up in the bathroom, lost control of his bowel, fell, striking his left chest and front of his chest. No loss of consciousness. Did not his head or neck. He was brought in in an ambulance. PHYSICAL EXAMINATION: VITAL SIGNS: His blood pressure is 106/53, pulse 71, respirations 20, temperature 97.2, sat 86% on room air. GENERAL: He is in no acute distress. HEENT: He has a little contusion to his head. No real neck pain. LUNGS: Coarse with severe tenderness on the left anterior chest wall. ABDOMEN: Obese, soft, really nontender. EXTREMITIES: He has edema, lower extremities. NEURO: He is alert, really nonfocal. EMERGENCY ROOM COURSE: Did the whole sepsis protocol. CBC was normal except hemoglobin 8.8. Chemistries normal except potassium 3.6. Lactate was 1.7. UA was normal except nitrite positive, 25-60 white cells. It was sent for culture. Cardiac enzymes negative. His EKG was sinus rhythm, rate 74, no changes. His CT of his head and C-spine were negative. CT of his chest revealed multiple left rib fractures, a sternal fracture, and a left lower lobe infiltrate. We started the whole sepsis pathway including fluids, antibiotics. Blood cultures x2 were sent. I talked to Dr. Piedra. We will admit to the ICU. ADMIT: 02/04/2017 RM/LOC: 311 [facility] MR#: [id number] [address] [address] WALE NOGUERA [address] [place] [address] Emergency Room Report SEX: M AGE: 71 : 1945 ASSESSMENT: On this patient is: 1. Left lower lobe pneumonia. 2. Sternal fracture. 3. Left rib fractures. 4. Urinary tract infection. 5. Weakness. 6. Fall. 7. Anemia. 8. Critical care time 75 minutes. PLAN: Admit to the ICU. Emeka Mulligan MD/ sherlyn JOB #: [id number] CC: Jon Piedra MD, Attending Physician Jon Piedra MD, Family Physician
[2017-02-11] MEDS ORDERED: ZOVIRAX400 MG PO (14:47)
[2017-02-11] MEDS ORDERED: ASA CHILDREN'S81 MG PO (14:47)
[2017-02-11] MEDS ORDERED: CALCIUM500 MG PO (14:47)
[2017-02-11] MEDS ORDERED: MELOXICAM15 MG PO (14:47)
[2017-02-11] MEDS ORDERED: GLUCOPHAGE-DPS500 MG PO (14:48)
[2017-02-11] MEDS ORDERED: REVLIMID25 MG PO (14:48)
[2017-02-11] MEDS ORDERED: VITAMIN B-12500 MCG PO (14:49)
[2017-02-11] MEDS ORDERED: BACTRIM DS DPS1 TAB PO (14:49)
[2017-02-11] MEDS ORDERED: VITAMIN D32000 UNI1 PO (14:49)
[2017-02-11] MEDS ORDERED: KLOR-CON M2020 ME1 PO (14:50)
--- NOTE | 2017-02-24 06:25 | DS ---
ADMIT: 02/04/2017 RM/LOC: 519 [facility] MR#: [id number] [address] [address] [place]A [address] [place] [address] General Discharge Summary SEX: M AGE: 71 : 1945 ADMISSION DATE: 02/04/2017 DISCHARGE DATE: 02/10/2017 ADMIT DIAGNOSIS: Fractured sternum. DISMISSAL DIAGNOSIS: Fractured sternum. ADDITIONAL DIAGNOSES: 1. Fractured ribs. 2. Pneumonia. 3. Multiple myeloma. 4. Thrombocytopenia. 5. Urinary tract infection. 6. Vasovagal syncope. 7. Anemia of chronic disease. 8. Hypokalemia. 9. Hypocalcemia. 10.Diabetes mellitus type 2. 11.Morbid obesity. 12.Obstructive sleep apnea. 13.Aortic valve stenosis. 14.Osteoarthritis. CHIEF COMPLAINT AND HISTORY OF PRESENT ILLNESS: A 71-year-old male, who was recently diagnosed with multiple myeloma. He is currently on chemotherapy. He also has a history of diabetes, hypertension, coronary artery disease with previous coronary angioplasty and stents. He was hospitalized in November 2016 with rectal bleeding. No apparent cause was found. It was presumed to be due to diverticular bleed. He was too weak to go home. When he left the hospital in November was placed in a detention. Eventually with physical therapy was strong enough and went back home. He had urinary retention due to BPH. He has a chronic indwelling Hernández catheter and is being followed by Urology. He got up to go to the bathroom as he has been having problems with diarrhea. He had to go urgently. He got up quickly went to the bathroom. On the way there, he felt like he was going to faint. He went down, did not completely lose consciousness, but was somewhat confused, went down fairly hard. Ambulance was called. He was brought into the emergency room and was found to have fractured ribs on the left side and fractured sternum. CT scan was used to diagnose his fracture and showed left lower lobe infiltrate consistent with pneumonia. Head CT was negative for any brain injury. LABORATORY DATA: Please see lab summary sheets. Prior to dismissal, his hemoglobin was 8.2, white count 10.6, and platelets 116,000. INR on admission was 1.01. UA showed 3+ leukocytes, positive nitrites, 2560 wbc's with many clumps, rare bacteria. Electrolytes prior to dismissal; sodium was 141, potassium 4.0, chloride 104, CO2 of 29, BUN 10, creatinine 0.7, glucose 81, magnesium was 2.1. Procalcitonin and lactic acid levels were normal on admission. Troponin I was normal on admission. Serial blood sugars monitored during the hospital stay were in the 100 to 250 range. Blood culture showed ADMIT: 02/04/2017 RM/LOC: 519 [facility] MR#: [id number] [address] [place] [id number] [place] [address] [address] [place] [address] General Discharge Summary SEX: M AGE: 71 : 1945 no growth. Urine culture grew out Klebsiella pneumoniae resistant to ampicillin and resistant to cefoxitin and resistant to Macrodantin that was sensitive to all other antibiotics tested. Stool for C. diff was negative. RADIOLOGY REPORTS: CT scan of the head showed age-related atrophy, but no acute changes. CT of the cervical spine was negative. CT of the chest showed left lower lobe consolidation and small right pleural effusion, mid body sternal fracture, multiple age indeterminate left-sided rib fractures, no pneumothorax. Chest x-ray on February 05 showed bibasilar opacities, edema versus infection. February 08, showed worsening. February 09, showed left basilar consolidation. EKG showed nonspecific ST-T changes. COURSE IN THE HOSPITAL: Jacobo was admitted, initially kept n.p.o., started on IV fluids, IV vancomycin, and Zosyn for possible sepsis. Morphine p.r.n. for pain. He was placed on sliding scale insulin for his diabetes. Hematology/Oncology consult was obtained for thrombocytopenia and the multiple myeloma. Rib belt was placed for comfort. Due to the low platelets and the trauma and fracture, he was not placed on any anticoagulant therapy. He did have hypocalcemia with calcium level of 6.6, was given IV calcium gluconate, was given some Imodium for his loose stools after the C. diff came back negative. His pain level improved over next several days, and he was able to ambulate to the bathroom. He was dismissed with a Hernández catheter in place on Bactrim. He is to follow up with Urology on his BPH. Follow up with Oncology on his multiple myeloma. FOLLOWUP: He is to follow up with me in the office in 1 week. DISCHARGE MEDICATIONS: 1. Aspirin 81 mg daily. 2. Septra DS 1 b.i.d. for a week. 3. Coreg 6.25 mg b.i.d. 4. Decadron 4 mg on Tuesdays and Fridays for his multiple myeloma. 5. Effexor 75 mg p.o. daily. 6. Iron 325 mg b.i.d. 7. Flomax 0.4 mg daily. ADMIT: 02/04/2017 RM/LOC: 519 [facility] MR#: [id number] [address] [place] [id number] [facility] [address] [place] [address] General Discharge Summary SEX: M AGE: 71 : 1945 8. Folic acid 1 tablet daily. 9. Metformin 500 mg b.i.d. 10.Potassium 20 mEq daily. 11.Lipitor 40 mg at bedtime. 12.Calcium supplements 500 mg daily. 13.Revlimid 25 mg daily. 14.Vitamin D 2000 international units daily. 15.Zovirax 400 mg b.i.d. 16.Lortab 5/325, one every 6 hours p.r.n. 17.Omeprazole 40 mg b.i.d. 18.Lipitor 40 mg at bedtime. 19.Mobic 15 mg daily. Jon Piedra MD/ sherlyn JOB #: [id number] CC: Jon Piedra MD, Attending Physician Jon Piedra MD, Family Physician
--- NOTE | 2017-03-10 06:58 | CO ---
ADMIT: 02/04/2017 RM/LOC: 308 [facility] MR#: [id number] 2620 [facility] [address] [place] [address] MIKE NOGUERADRGILDA Clemons [address] [place] [address] Consultation SEX: M AGE: 71 : 1945 DATE OF CONSULTATION: 02/05/2017 ATTENDING PHYSICIAN: Jon Piedra MD CONSULTING PHYSICIAN: Earl Mendoza MD CHIEF COMPLAINT: Recent fall with rib fractures on the left side. HISTORY OF PRESENT ILLNESS: This is a pleasant patient of Dr. Piedra, who was admitted after a fall yesterday. I have actually seen this patient before I believe for GI bleeds. He has pain in his right ribs. He has had this after he fell and hit his left side. He also hit his head, did not lose consciousness, just has a small bruise above his left eye. He was worked up through the ER and found that basically just had the rib fractures, was admitted by Dr. Piedra, and I was asked to see him in surgical consultation because of these rib fractures. He is breathing okay at this point. He says he does have some discomfort with a deep breath. PAST MEDICAL HISTORY: Well outlined on the chart. He has a pretty complex past medical history with recent malignancy and treatment for that in general debilitation because of all that. REVIEW OF SYSTEMS: A 10-point review of systems is essentially negative exception of his left-sided rib pain and a little bit shortness of breath secondary to that. No loss of consciousness. No rectal bleeding or GI bleeding at this time. PHYSICAL EXAMINATION: GENERAL: He is alert. He is oriented. Currently, in no acute distress. HEENT: He does have the bruising above his left eye. No obvious laceration there though. Remainder of HEENT is normal. NECK: No thyroid masses. No adenopathy. LUNGS: Clear bilaterally. No crackles or wheezes at this time. HEART: Regular without murmurs. ABDOMEN: Obese. It is soft. It is nontender and nondistended throughout. ADMIT: 02/04/2017 RM/LOC: 308 [facility] MR#: [id number] [address] [address] WALE NOGUERA [address] [place] [address] Consultation SEX: M AGE: 71 : 1945 No mass or organomegaly appreciated. EXTREMITIES: Warm and pink with some mild edema. ASSESSMENT: Recent fall with rib fractures on the left side. PLAN: I did recommend intense pulmonary hygiene with incentive spirometry. DuoNeb as well as EzPAP and have RT work with him. I also want him to be up and active, out of bed, sitting in the chair, walking, and moving etc. I discussed with him that we just absolutely do not want him to develop a pneumonia, so it is going to be important for him to participate in his treatment and to do aggressive pulmonary hygiene. He does understand all of this and agrees with this plan. Earl Mendoza MD/ sherlyn JOB #: [id number] CC: Jon Piedra MD, Attending Physician Jon Piedra MD, Family Physician
== END 2017-02-10 14:10 | disposition home or self-care (01) | DRG 183 ==
LOC: ER 14:03 → 3ICU 16:40 → 5MS 02-06 17:54
PROVIDERS: ADMIT Family Medicine
DX: S22.42XA Multiple fractures of ribs, left side, initial encounter for closed fracture (principal); J18.9 Pneumonia, unspecified organism; S22.22XA Fracture of body of sternum, initial encounter for closed fracture; C90.00 Multiple myeloma not having achieved remission; D69.59 Other secondary thrombocytopenia; N39.0 Urinary tract infection, site not specified; B96.1 Klebsiella pneumoniae [K. pneumoniae] as the cause of diseases classified elsewhere; W18.30XA Fall on same level, unspecified, initial encounter; S06.0X0A Concussion without loss of consciousness, initial encounter; D63.0 Anemia in neoplastic disease; E83.51 Hypocalcemia; E87.6 Hypokalemia; E87.70 Fluid overload, unspecified; I10 Essential (primary) hypertension; E11.9 Type 2 diabetes mellitus without complications; Z68.34 Body mass index [BMI] 34.0-34.9, adult; E66.9 Obesity, unspecified; G47.33 Obstructive sleep apnea (adult) (pediatric); I35.0 Nonrheumatic aortic (valve) stenosis; I25.10 Atherosclerotic heart disease of native coronary artery without angina pectoris; N40.1 Benign prostatic hyperplasia with lower urinary tract symptoms; R33.9 Retention of urine, unspecified; Z79.82 Long term (current) use of aspirin; Z95.5 Presence of coronary angioplasty implant and graft; Z79.84 Long term (current) use of oral hypoglycemic drugs; Z96.653 Presence of artificial knee joint, bilateral; Z82.49 Family history of ischemic heart disease and other diseases of the circulatory system

== ENCOUNTER → 2017-03-03 | Outpatient (CLI) | payer MEDICARE, BC, MEDICAID ==
[~2017-03-03] MED LIST changes: +BACTRIM DS DPS1 TAB PO; +CALCIUM500 MG PO; +GLUCOPHAGE-DPS500 MG PO; +KLOR-CON M2020 ME1 PO; +MELOXICAM15 MG PO; +REVLIMID25 MG PO; +VITAMIN D32000 UNI1 PO; +ZOVIRAX400 MG PO
== END | disposition home or self-care (01) ==
LOC: PTH.S 03-02 12:00
DX: R19.7 Diarrhea, unspecified (principal)

== ENCOUNTER → 2017-03-06 | Outpatient (CLI) | payer MEDICARE, BC, MEDICAID | END | disposition home or self-care (01) | LOC: EDT 11:00 | DX: E11.9 Type 2 diabetes mellitus without complications (principal); Z71.3 Dietary counseling and surveillance ==

== ENCOUNTER → 2017-03-06 | Outpatient (CLI) | payer MEDICARE, BC, MEDICAID | END | disposition home or self-care (01) | LOC: RAD.S 09:00 | DX: C90.00 Multiple myeloma not having achieved remission (principal); R06.02 Shortness of breath; R07.81 Pleurodynia; D63.0 Anemia in neoplastic disease; E66.9 Obesity, unspecified; I10 Essential (primary) hypertension; Q79.1 Other congenital malformations of diaphragm ==